=== PATIENT | female | born 1950 | race Caucasian/White ===

== ENCOUNTER → 2019-06-12 | Outpatient (CLI) | payer MEDICARE ==
[~2019-06-12] MED LIST: ATACAND HCT 321 EACH PO; CARISOPRODOL 3350 MG PO; CIPRO500 MG PO; CRESTOR10 MG PO; DICLOFENAC SOD50 MG; FLAGYL500 MG PO; FLEXERIL PO; LEVOTHYROXINE 0.1 MG PO; LISINOPRIL-HCT1 EAC1; LISINOPRIL-HCT1 EAC1 PO; LISINOPRIL2.5 MG; NORCO 5-325 TA1 EACH PO; PRAVACHOL40 MG PO; PRILOSEC OTC20 MG PO; PROTONIX40 M1 PO; PROZAC 20 MG20 M1; PROZAC 20 MG20 MG PO; SYNTHROID PO
== END ==
LOC: M.RAD 12:54
DX: Z12.31 Encounter for screening mammogram for malignant neoplasm of breast (principal)